=== PATIENT | male | born 1945 | race Caucasian/White ===

== ENCOUNTER 2018-10-10 11:29 | Emergency (ER) | payer MEDICARE, BC ==
[2018-10-10] MEDS ORDERED: Ondansetron ODT 4 MG TAB ONE (11:43)
[2018-10-10 12:35] LABS: #Lymphocytes 0.5 thou/uL (1.20-3.40); #Monocytes 0.3 thou/uL (0.11-0.59); #Neutrophils 10.1 thou/uL (1.40-6.50); %Eosinophils 0.3 % (0.0-10.0); %Lymphocytes 4.4 % (21.0-51.0); %Monocytes 3.1 % (0.0-10.0); %Neutrophils 92.3 % (42.0-75.0); Hemoglobin 16.9 g/dL (14.0-18.0); Mean Corpuscular Hemoglobin 28.5 pg (27.0-31.0); Mean Corpuscular Volume 83.9 fL (78.0-98.0); Mean Platelet Volume 7.2 fL (7.4-10.4); Platelet Count 208 thou/uL (130-400); RBC Distribution Width 13.3 % (11.5-14.5); Red Blood Cell (RBC) Count 5.94 mill/uL (4.70-6.10); White Blood Cell (WBC) Count 10.9 thou/uL (4.8-10.8)
[2018-10-10 13:23] LABS: ALT (SGPT) 37 U/L (8-55); AST (SGOT) 27 U/L (5-34); Albumin 3.9 g/dL (3.4-4.8); Alkaline Phosphatase 35 U/L (40-150); Anion Gap 15 mmol/L (10-20); BUN (Urea Nitrogen) 25 mg/dL (8.4-25.7); Bilirubin, Total 1.2 mg/dL (0.2-1.2); Calc. Creatinine Clearance 0 mL/min (70-130); Calcium 8.9 mg/dL (7.8-10.44); Carbon Dioxide 24 mmol/L (23-31); Chloride 104 mmol/L (98-107); Estimated GFR-MDRD 55; Globulin 3.3 g/dL (2.4-3.5); Glucose 144 mg/dL (83-110); Lipase 28 U/L (8-78); Potassium 4.2 mmol/L (3.5-5.1); Protein, Total 7.2 g/dL (5.8-8.1); Sodium 139 mmol/L (136-145)
== END 2018-10-10 13:35 | disposition home or self-care (01) ==
LOC: ERS 11:29
DX: K52.9 Noninfective gastroenteritis and colitis, unspecified (principal); E86.0 Dehydration; E78.5 Hyperlipidemia, unspecified; Z85.46 Personal history of malignant neoplasm of prostate; Z79.899 Other long term (current) drug therapy; Z79.82 Long term (current) use of aspirin
CPT/HCPCS: 36415; 80053; 83690; 85025; 96360; Q0162

== ENCOUNTER 2019-01-23 07:49 | Outpatient (CLI) | payer MEDICARE, BC ==
--- NOTE | 2019-01-23 09:36 | CT ---
CT Abdomen Pelvis W WO con HISTORY: Microhematuria. Prostate cancer, status post prostatectomy COMPARISON: 12/21/2007 FINDINGS: There are mild dependent changes at the lung bases. Calcified gallstones are present. The l iver, spleen, pancreas and adrenal glands are normal. No free air, free fluid or abdominal lymphadenopathy is seen. No calculi noted in the kidneys, ureters or the urinary bladder. Exophytic left renal cyst is smaller . Small low-density lesions in the kidneys are likely cysts. There is normal contrast excretion into the ureters and urinary bladder. There are postoperative changes of prostatectomy. The 2.6 cm le ft perirectal enhancing mass is stable. There are vascular calcifications without evidence of aneurysmal dilatation of the abdominal aorta. D egenerative changes are seen in the spine. A small left fat-containing inguinal hernia is present. The small bowel loops are not abnormally dilated. IMPRESSION: 1. No CT evidence of urinary tract calculi or obstruction. 2. Probable small renal cysts. 3. Status post prostatectomy with stable 2.6 cm enhancing left perirectal mass. 4. Cholelithiasis.
[2019-01-23] MEDS ORDERED: ISOVUE-370 76%-LOCM 1 ML ONE (10:22)
== END 2019-01-23 07:50 | disposition home or self-care (01) ==
LOC: BICCT 07:49
PROVIDERS: ATTEND Urology
DX: R31.29 Other microscopic hematuria (principal); K80.20 Calculus of gallbladder without cholecystitis without obstruction; Z98.890 Other specified postprocedural states
CPT/HCPCS: 74178; 82565; Q9966

== ENCOUNTER 2019-06-26 19:30 | Outpatient (CLI) | payer MEDICARE, BC | END 2019-06-26 19:31 | disposition home or self-care (01) | LOC: SLEEPLAB 19:30 | PROVIDERS: ATTEND Family Medicine | DX: G47.33 Obstructive sleep apnea (adult) (pediatric) (principal); R53.83 Other fatigue; R06.83 Snoring; I10 Essential (primary) hypertension | CPT/HCPCS: 95811 ==

== ENCOUNTER 2019-09-27 14:01 | Outpatient (CLI) | payer MEDICARE, BC ==
[2019-09-27 16:12] LABS: #Basophils 0.1 thou/uL (0.0-0.2); #Eosinphils 0.2 thou/uL (0.0-0.7); #Lymphocytes 2.2 thou/uL (1.20-3.40); #Monocytes 0.5 thou/uL (0.11-0.59); #Neutrophils 2.7 thou/uL (1.40-6.50); %Eosinophils 3.3 % (0.0-10.0); %Lymphocytes 39.5 % (21.0-51.0); %Monocytes 9.1 % (0.0-10.0); %Neutrophils 47.2 % (42.0-75.0); Hemoglobin 15.7 g/dL (14.0-18.0); Mean Corpuscular HGB CONC 34.1 g/dL (32.0-36.0); Mean Corpuscular Hemoglobin 29.3 pg (27.0-31.0); Mean Corpuscular Volume 85.9 fL (78.0-98.0); Mean Platelet Volume 7.3 fL (7.4-10.4); Platelet Count 222 thou/uL (130-400); RBC Distribution Width 13.3 % (11.5-14.5); Red Blood Cell (RBC) Count 5.38 mill/uL (4.70-6.10); White Blood Cell (WBC) Count 5.6 thou/uL (4.8-10.8)
[2019-09-27 16:13] LABS: Bacteria/HPF None Seen HPF (None Seen); Bilirubin Negative (Negative); Blood, Urine Trace (Negative); Clarity Clear (Clear); Glucose, Urine (Dipstick) Normal (Negative); Leukocyte Negative Leu/uL (Negative); Nitrite Negative (Negative); Protein, Urine (Dipstick) Negative (Neg-Trace); RBC/HPF 0-3 HPF (0-3); Squamous Epithelial None Seen HPF (0-3); Urobilinogen Normal mg/dL (Less than 2); WBC/HPF 0-3 HPF (0-3)
[2019-09-27 16:17] LABS: INR-International Normal Ratio 1.1; Prothrombin Time 13.9 SEC (12.0-14.7)
[2019-09-27 16:30] LABS: Anion Gap 13 mmol/L (10-20); BUN (Urea Nitrogen) 18 mg/dL (8.4-25.7); Calc. Creatinine Clearance 0 mL/min (70-130); Calcium 9.2 mg/dL (7.8-10.44); Carbon Dioxide 27 mmol/L (23-31); Chloride 104 mmol/L (98-107); Estimated GFR-MDRD 72; Glucose 83 mg/dL (83-110); Potassium 3.7 mmol/L (3.5-5.1); Sodium 140 mmol/L (136-145)
== END 2019-09-27 14:02 | disposition home or self-care (01) ==
LOC: LABBT 14:01
PROVIDERS: ATTEND Orthopaedic Surgery
DX: Z01.818 Encounter for other preprocedural examination (principal); M16.12 Unilateral primary osteoarthritis, left hip
CPT/HCPCS: 80048; 81001; 85025; 85610; 87081; 93005; 93010

== ENCOUNTER 2019-10-15 09:02 | Inpatient (IN) | payer MEDICARE, BC ==
[2019-09-27 14:15] VITALS: BMI 30.9
--- NOTE | 2019-10-11 08:26 | HP ---
HISTORY OF PRESENT ILLNESS: The patient is a 74-year-old male with a 6-to 7-month history of progressive left hip and groin pain without injury. He has had progressive problems with despite rest, restriction of activities, and anti-inflammatory medications. The pain is now interfering with day-to-day activities including walking, getting dressed, driving a car, and sleeping. PAST MEDICAL HISTORY: The patient has a history of prostate cancer and underwent previous prostatectomy and has been in remission. He has chronic sinusitis, anxiety, and hypertension. CURRENT MEDICATIONS: Include; 1. Simvastatin. 2. Losartan. 3. Ambien. 4. Sildenafil. 5. Ibuprofen. ALLERGIES: HE HAS NO KNOWN ALLERGIES. FAMILY HISTORY: Otherwise, unremarkable. SOCIAL HISTORY: Otherwise, unremarkable. REVIEW OF SYSTEMS: Otherwise, unremarkable. PHYSICAL EXAMINATION: GENERAL: Reveals a healthy male. HEENT: Unremarkable. NECK: Supple. CHEST: Clear. HEART: Regular rate and rhythm. ABDOMEN: Soft and nontender. RECTAL AND GENITAL: Deferred. EXTREMITIES: Pertinent findings related to the left hip is leg lengths are equal. There is tenderness over the anterior hip. There is a slight left antalgic gait. There is decreased range of motion of the left hip and groin pain with internal rotation. Neurovascular exam is intact. There are palpable distal pulses. DIAGNOSTIC STUDIES: X-rays of the left hip reveal moderately severe DJD with minimal joint space remaining. IMPRESSION: 1. Degenerative arthritis, left hip. 2. History of prostate cancer. 3. History of hypertension. PLAN: Left total hip replacement. The nature of the surgery, length of recovery, and potential complications such as infection, loss of motion, incomplete relief, leg-length discrepancy, possible transfusion, and need for revision have been discussed in detail. Job ID: [id number]
[2019-10-15] MEDS ORDERED: Vancomycin 1.5 GRAM/300 ML BAG 1.5 GM/300 ML BAG ONE (10:10)
[2019-10-15] MEDS ORDERED: Sodium Chloride 0.9% 100 ML ONE (10:10)
[2019-10-15] MEDS ORDERED: Tranexamic Acid 1,000 MG/10 ML VIAL ONE ×2 (10:10→13:54)
[2019-10-15] MEDS ORDERED: Fentanyl 100 MCG/2 ML VIAL ONE ×2 (10:37→11:53)
[2019-10-15] MEDS ORDERED: Midazolam HCl 2 mg/2 ml Vial ONE (10:37)
[2019-10-15] MEDS ORDERED: Dexamethasone 20 MG/5 ML VIAL ONE (10:41)
[2019-10-15] MEDS ORDERED: PHENYLEPHRINE-NS 100 MCG/ML 10 ML SYRINGE ONE (10:41)
[2019-10-15] MEDS ORDERED: PROPOFOL 200 MG/20 ML VIAL ONE (10:41)
[2019-10-15] MEDS ORDERED: Glycopyrrolate 0.2 MG/ML 5 ML SYRINGE ONE (10:41)
[2019-10-15] MEDS ORDERED: ePHEDrine/0.9% NaCl/PF SYRINGE 50 mg/10 ml ONE (10:41)
[2019-10-15] MEDS ORDERED: Calcium Chloride 1 GM/10 ML Abboject SYRINGE ONE (10:41)
[2019-10-15] MEDS ORDERED: Ondansetron PF 4 MG/2 ML Vial ONE (10:41)
[2019-10-15] MEDS ORDERED: Lidocaine 1% PF 5 ML VIAL ONE (10:41)
[2019-10-15] MEDS ORDERED: Lidocaine 1.5%/Epinephrine 1:200,000 5 ML AMPUL IJ ONE (10:41)
[2019-10-15] MEDS ORDERED: Rocuronium Bromide 10 MG/ML (10ML VIAL) ONE (10:41)
[2019-10-15] MEDS ORDERED: Acetaminophen 325 MG TAB PO PRN ×2 (11:22→15:58)
[2019-10-15] MEDS ORDERED: Famotidine/PF 20 mg/2ml Vial ONE (11:27)
[2019-10-15] MEDS ORDERED: traMADol HCl 50 MG TAB PO PRN ×3 (11:30→15:58)
[2019-10-15] MEDS ORDERED: diphenhydrAMINE 50 MG/ML VIAL IVP PRN (11:30)
[2019-10-15] MEDS ORDERED: HYDROcodone/Acetaminophen 5/325 mg Tablet PO PRN (11:30)
[2019-10-15] MEDS ORDERED: Bupivacaine 0.25% 10 ML VIAL EPIDURAL PRN (11:30)
[2019-10-15] MEDS ORDERED: Hydrocerin (Eucerin) Cream 120 gm Jar TOP PRN (11:30)
[2019-10-15] MEDS ORDERED: Ondansetron PF 4 MG/2 ML Vial IVP PRN ×2 (11:30→15:58)
[2019-10-15] MEDS ORDERED: diphenhydrAMINE 25 MG CAP PO PRN ×2 (11:30→15:58)
[2019-10-15] MEDS ORDERED: Naloxone HCl 0.4 mg/ml Vial IV PRN (11:30)
[2019-10-15] MEDS ORDERED: Promethazine HCl 25 MG/ML VIAL IM PRN ×2 (11:30→13:03)
[2019-10-15] MEDS ORDERED: Promethazine HCl 25 MG SUPP PR PRN (11:30)
[2019-10-15] MEDS ORDERED: diphenhydrAMINE 50 MG/ML VIAL IM PRN (11:30)
[2019-10-15] MEDS ORDERED: Naloxone HCl 0.4 mg/ml Vial IVP PRN (11:30)
[2019-10-15] MEDS ORDERED: Phenylephrine HCL 10 MG/ML VIAL ONE (12:58)
[2019-10-15] MEDS ORDERED: Ondansetron HCl/PF 4 MG/2 ML Vial IVP PRN (13:03)
[2019-10-15] MEDS ORDERED: Promethazine HCl 25 MG/ML VIAL SLOW IVP PRN ×2 (13:03→15:58)
[2019-10-15] MEDS ORDERED: PACU-Morphine 4MG/ML VIAL SLOW IVP PRN (13:03)
[2019-10-15] MEDS ORDERED: Albumin 5% 250 ML ONE (13:07)
[2019-10-15] MEDS ORDERED: Tranexamic Acid 1,000 MG in Sodium Chloride 0.9% 100 ML IVPB SCH ×2 (14:00→15:58)
--- NOTE | 2019-10-15 14:28 | OP ---
DATE OF PROCEDURE: 10/15/2019 This is Rayray Sam PA-C dictating a report for Arturo Salter MD. PREPROCEDURE DIAGNOSIS: End-stage bicompartmental osteoarthritis, left hip. POSTOPERATIVE DIAGNOSIS: End-stage bicompartmental osteoarthritis, left hip. PROCEDURE PERFORMED: Press-fit left total hip arthroplasty. SEWING MACHINIST: Rayray Sam PA-C ANESTHESIA: General via endotracheal tube augmented with indwelling epidural. COMPONENTS USED: [employer] Accolade press-fit hip stem size 6 with a Trident PSL press-fit 56 mm cluster acetabular shell, 10-degree polyethylene fixed bearing insert, and 36-mm -5 neck length ceramic femoral head. FINDINGS: End-stage degenerative bicompartmental disease, [id number] arthrosis, particular osteophyte formation, large serous effusion, hypertrophic synovium. ESTIMATED BLOOD LOSS: 350. INPUT: 2200 of crystalloid. OUTPUT: 300 mL of clear yellow urine. DRAINS: None. SPECIMENS: None. COMPLICATIONS: None. COUNTS: Correct. INDICATIONS FOR SURGERY: Rod is a 74-year-old male, who has had progressive left hip, groin, and thigh pain and problem with standing and walking for the last 5 to 7 years. He has failed conservative management and elected to proceed with total hip arthroplasty as definitive treatment of his pain. PROCEDURE IN DETAIL: After informed consent was obtained in the preoperative holding area, the patient was taken to the operative suite where general anesthesia was induced. The patient was then positioned in the lateral decubitus position. The hip was then prepped and draped in usual sterile fashion. The patient received preoperative antibiotics. Prior to incision, time-out was called and all members of the surgical team agreed upon site, surgeon, and patient. After this, a longitudinal incision was made directly over the trochanter, noted by palpation extending 2 fingerbreadths above and below the trochanter. The deeper subcutaneous layer was undermined with Bovie electrocautery. The iliotibial band was encountered and incised sharply and the plane below this was developed bluntly. A Charnley retractor was placed to hold this opened. The lateral aspect of the trochanter and the abductor muscles were encountered and then reflected anteriorly off the trochanter using Bovie electrocautery. Once this was completed, the anterior capsule was then encountered and identified and copious capsulotomy was carried out, exposing the femoral neck and head. Dislocation maneuver was then performed and an in situ provisional neck cut was then made using the oscillating saw. Attention was then turned to acetabular preparation. Sequential reaming was carried out up to the appropriate diameter and a trial was then malleted into place with good firm resistance and no pullout. The permanent acetabular shell was then malleted squarely into place, as was the appropriate liner. Once completed, the wound was copiously irrigated and attention was then turned to femoral preparation. Flexion and external rotation were performed of the exposed thigh and femoral elevators were then placed at the proximal aspect of the wound. Canal finder was used to establish the length of the canal and sequential reaming was carried out, followed by broaching. Once the appropriate stability was established with the trial broaches with flexion, extension and rotational stability, we did trial with neutral and 2 mm offset incremental necks. Once the appropriate size was decided upon, with good stability noted with flexion, extension, internal and external rotation and shuck being negative, we removed the femoral trial broach and malletted into place the permanent prosthesis with good firm fit, which was also stable to rotation. Again, the hip felt very stable to flexion, extension, internal and external rotation. Leg lengths appeared near anatomic clinically and we were quite happy with prosthesis placement. Copious irrigation was then carried out through the entirety of the wound. Primary closure of the abductors was accomplished with interrupted #2 Vicryl [id number] stitches and the IT band was then closed with interrupted #2 Vicryl, oversewn with a #2 running barbed Quill stitch. Subcutaneous fascia was closed with running barbed Quill stitch and a subcuticular Monocryl barbed Quill stitch was used for skin closure and augmented with skin cement. A sterile dressing was applied. The procedure was terminated without any complication. All counts were correct. The patient was awakened in the operative suite and taken to the recovery room in stable condition. Job ID: [id number]
--- NOTE | 2019-10-15 14:40 | RAD ---
Left hip 2 views HISTORY: Hip replacement. FINDINGS: Metal prosthesis is in place. No perihardware lucency. Metallic clips overlie the prostate bed. IMPRESSION: Left hip prosthesis in good radiographic position.
[2019-10-15] MEDS ORDERED: HYDROcodone/Acetaminophen 10/325 mg Tablet PO PRN ×2 (15:58)
[2019-10-15] MEDS ORDERED: Zolpidem Tartrate 5 MG TAB PO PRN (15:58)
[2019-10-15] MEDS ORDERED: Fentanyl 100 MCG/2 ML VIAL SLOW IVP PRN ×2 (15:58)
[2019-10-15] MEDS: Ketorolac Tromethamine 30 MG/ML VIAL IVP SCH ×5 (16:12→23:32)
[2019-10-15] MEDS ORDERED: Multivitamin W/ Minerals 1 TAB PO SCH (17:00)
[2019-10-15] MEDS ORDERED: Aspirin 81 mg Enteric Coated Tablet PO SCH (17:00)
[2019-10-15] MEDS ORDERED: Ferrous Gluconate 324 MG TAB PO SCH (17:00)
[2019-10-15] MEDS ORDERED: Senokot S 8.6-50 MG TAB PO SCH (17:00)
[2019-10-15] MEDS ORDERED: CEFAZOLIN 2 GM in Premix Bag 1 BAG IVPB SCH (18:00)
[2019-10-15] MEDS: Sodium Chloride 0.9% 1,000 ML IV SCH ×2 (18:11→19:38)
--- NOTE | 2019-10-15 19:23 | PDOC.HHP ---
Hospitalist HPI - History of Present Illness Medical Management s/p left hip replacement History of Present Illness: Mr Machuca is a 74M who is post-op from a left hip replacement. Reports he has been dealing with left hip pain for over 6 months. Reports pain was worse with movement, performing ADLs. Currently, is pain free, has a nerve block for pain control. Denies complaints currently. reports he came up from PACU around 4pm today. Dr. Sury Bella is PCP. Hospitalist ROS - Review of Systems Constitutional: denies: fever, chills, sweats, weakness, malaise, other Eyes: denies: pain, vision change, conjunctivae inflammation, eyelid inflammation, redness, other ENT: denies: ear pain, ear discharge, nose pain, nose discharge, nose congestion , mouth pain, mouth swelling, throat pain, throat swelling, other Respiratory: denies: cough, dry, shortness of breath, hemoptysis, SOB with excertion, pleuritic pain, sputum, wheezing, other Cardiovascular: denies: chest pain, palpitations, orthopnea, paroxysmal noc. dyspnea, edema, light headedness, other Gastrointestinal: denies: nausea, vomiting, abdominal pain, diarrhea, constipation, melena, hematochezia, other Genitourinary: denies: dysuria, frequency, incontinence, hematuria, retention, other Musculoskeletal: reports: leg pain (c/o of left hip pain for the past 6+ months) Skin: denies: rash, lesions, luis, bruising, other Neurological: denies: weakness, numbness, incoordination, change in speech, confusion, seizures, other - Medication Medications: Active Medications Generic Name Dose Route Start Last Admin Trade Name Freq PRN Reason Stop Dose Admin Sodium Chloride 1,000 mls @ 100 mls/hr 10/15/19 15:58 10/15/19 18:11 Normal Saline 0.9% IV Not Given .Q10H [facility] Ketorolac Tromethamine 15 mg 10/15/19 12:00 10/15/19 18:32 Toradol IVP 10/17/19 06:01 15 mg Q6HR [facility] Administration Ketorolac Tromethamine 15 mg 10/15/19 18:00 10/15/19 18:29 Toradol IVP 10/17/19 18:01 Not Given Q6HR [facility] Hospitalist History - Past Medical History Source: patient Cardiac: reports: HTN, Hyperlipidemia Psych: reports: Anxiety Renal/: reports: Other (Prostate ca in the past) Other Medical History: Chronic sinusitis, seasonal allergies - Past Surgical History Past Surgical History: reports: TURP Other Surgical History: Rt knee repair, Colonoscopies, Hernia repair, sinus surgery - Family History Other Family History: FMH of cancer,dementia - Social History Alcohol: reports: None Drugs: reports: none Living Situation: With Family Activity level: independent ambulation - Exam General Appearance: NAD, awake alert Eye: PERRL ENT: normocephalic atraumatic, moist mucosa Neck: supple, no JVD, JVD Heart: RRR, normal peripheral pulses Respiratory: CTAB, normal chest expansion Gastrointestinal: soft, non-tender Extremities: no edema Skin: normal turgor Neurological: cranial nerve grossly intact Musculoskeletal: normal tone, normal strength Psychiatric: normal affect, A&O x 3 Hospitalist H&P A/P - Problem (1) Chronic left hip pain Code(s): M25.552 - PAIN IN LEFT HIP; G89.29 - OTHER CHRONIC PAIN Status: Chronic (2) Hypertension Code(s): I10 - ESSENTIAL (PRIMARY) HYPERTENSION Status: Chronic (3) Hyperlipemia Code(s): E78.5 - HYPERLIPIDEMIA, UNSPECIFIED Status: Chronic - Plan Plan: Home meds have been restarted PT as ordered by ortho DVT/GI prevention pain management by anesthesia/ortho We will continue to monitor BP Thank you for the consultation
[2019-10-15] MEDS: CEFAZOLIN 2 GM in Premix Bag 1 BAG IVPB SCH (19:38)
[2019-10-15] MEDS ORDERED: Metoprolol Tartrate 25 MG TAB PO SCH (21:00)
[2019-10-15] MEDS: Simvastatin 20 MG TAB PO SCH (21:22)
[2019-10-15] MEDS ORDERED: Vancomycin 1.5 GRAM/300 ML BAG 1.5 GM in Premix Bag 1 BAG IVPB SCH (22:00)
[2019-10-15] MEDS: Zolpidem Tartrate 5 MG TAB PO PRN (22:04)
[2019-10-16] MEDS: CEFAZOLIN 2 GM in Premix Bag 1 BAG IVPB SCH (03:00)
[2019-10-16 05:15] LABS: Mean Corpuscular HGB CONC 33.3 g/dL (32.0-36.0); Mean Corpuscular Hemoglobin 28.6 pg (27.0-31.0); Mean Corpuscular Volume 85.8 fL (78.0-98.0); Mean Platelet Volume 7.2 fL (7.4-10.4); Platelet Count 177 thou/uL (130-400); RBC Distribution Width 13.1 % (11.5-14.5); Red Blood Cell (RBC) Count 4.53 mill/uL (4.70-6.10); White Blood Cell (WBC) Count 12.6 thou/uL (4.8-10.8)
[2019-10-16] MEDS: Ketorolac Tromethamine 30 MG/ML VIAL IVP SCH ×5 (05:36→23:19)
[2019-10-16] MEDS: Fentanyl 5 mcg/Bup 0.075% Cadd 100 ML EPIDURAL SCH ×2 (06:04→22:49)
[2019-10-16] MEDS: Aspirin 81 mg Enteric Coated Tablet PO SCH ×2 (08:06→20:25)
[2019-10-16] MEDS: Multivitamin W/ Minerals 1 TAB PO SCH (08:07)
[2019-10-16] MEDS: Ferrous Gluconate 324 MG TAB PO SCH ×2 (08:07→20:26)
[2019-10-16] MEDS: Senokot S 8.6-50 MG TAB PO SCH ×2 (08:07→20:26)
[2019-10-16] MEDS: HYDROcodone/Acetaminophen 5/325 mg Tablet PO PRN ×3 (08:08→20:33)
--- NOTE | 2019-10-16 13:53 | PRG ---
DATE OF SERVICE: 10/16/2019 SUBJECTIVE: Rod is a 74-year-old male, postop day 1 from a left total hip arthroplasty. He is doing relatively well and he was able to ambulate greater than 80 feet earlier this morning. OBJECTIVE: VITAL SIGNS: Temperature 98.9, pulse 89, respiratory rate is 20 and unlabored, O2 saturation is 94% on room air, blood pressure is 116/54. GENERAL: He is alert, oriented to person, place, time, and situation, responsive and appropriate with examiner. EXTREMITIES: His incision is clean. No malrotation or shortening of the hip. He is neurovascularly intact in both lower extremities. LABORATORY DATA: Hemoglobin and hematocrit 13.0 and 38.9. IMPRESSION: A 74-year-old male, postop day 1 left total hip arthroplasty, doing well. PLAN: Continue current care. Probable discharge home tomorrow or the next day once [place] is out. The patient is voiding. Job ID: [id number]
[2019-10-16] MEDS: Sodium Chloride 0.9% 1,000 ML IV SCH ×2 (15:31→21:46)
[2019-10-16] MEDS ORDERED: Metoprolol Tartrate 25 MG TAB PO SCH (18:49)
[2019-10-16] MEDS: Simvastatin 20 MG TAB PO SCH (20:25)
[2019-10-16] MEDS: Zolpidem Tartrate 5 MG TAB PO PRN (20:32)
--- NOTE | 2019-10-16 21:53 | PDOC.HOSPP ---
- Subjective Encounter Date: 10/16/19 Encounter Time: 18:15 Subjective: Patient seen and examined for med mngt. No CP/SOB. Pain controlled. No new complaints. No overnight events - Objective Vital Signs & Weight: Vital Signs (12 hours) Temp Pulse Resp BP Pulse Ox 10/16/19 20:00 99.3 F 92 16 127/63 95 10/16/19 15:02 98.3 F 85 16 122/68 96 Weight Admit Weight 235 lb Weight 235 lb I&O: 10/15/19 10/16/19 10/17/19 06:59 06:59 06:59 Intake Total 3113 Output Total 925 Balance 2188 Result Diagrams: 10/16/19 04:53 Additional Labs: Laboratory Tests 01/23/19 09/27/19 08:18 15:09 Creatinine 1.02 Est GFR (Non-Af Amer) 74 Hospitalist ROS - Review of Systems Respiratory: denies: cough, dry, shortness of breath, hemoptysis, SOB with excertion, pleuritic pain, sputum, wheezing, other Cardiovascular: denies: chest pain, palpitations, orthopnea, paroxysmal noc. dyspnea, edema, light headedness, other Gastrointestinal: denies: nausea, vomiting, abdominal pain, diarrhea, constipation, melena, hematochezia, other - Medication Medications: Active Medications Generic Name Dose Route Start Last Admin Trade Name Freq PRN Reason Stop Dose Admin Hydrocodone Bitart/Acetaminophen 1 tab 10/15/19 11:30 10/16/19 20:33 [place] 5/325 PO 1 tab Q4H PRN Administration Mild Pain 1-3 Aspirin 81 mg 10/16/19 09:00 10/16/19 20:25 Ecotrin PO 81 mg BID [facility] Administration Diphenhydramine HCl 25 mg 10/15/19 11:30 10/16/19 20:32 Benadryl PO 25 mg Q3H PRN Administration Itching Ferrous Gluconate 324 mg 10/16/19 09:00 10/16/19 20:26 Fergon PO 324 mg BID HEAVEN Administration Fentanyl Citrate 100 mls @ 6 mls/hr 10/15/19 11:30 10/16/19 06:04 Fentanyl/Bupivacaine EPIDURAL 100 mls INF [facility] Administration As Directed Sodium Chloride 1,000 mls @ 100 mls/hr 10/15/19 15:58 10/16/19 21:46 Normal Saline 0.9% IV Not Given .Q10H [facility] Iron/Minerals/Multivitamins 1 tab 10/16/19 09:00 10/16/19 08:07 Theragran M PO 1 tab DAILY [facility] Administration Ketorolac Tromethamine 15 mg 10/15/19 12:00 10/16/19 17:51 Toradol IVP 10/17/19 06:01 15 mg Q6HR [facility] Administration Metoprolol Tartrate 12.5 mg 10/16/19 18:49 10/16/19 20:25 Lopressor PO 12.5 mg HS [facility] Administration Senna/Docusate Sodium 2 tab 10/16/19 09:00 10/16/19 20:26 Senokot S PO 2 tab BID HE[facility]EN Administration Simvastatin 20 mg 10/15/19 21:00 10/16/19 20:25 Zocor PO 20 mg HS [facility] Administration Sodium Chloride 10 ml 10/15/19 15:58 10/16/19 20:27 Flush - Normal Saline IVF 10 ml PRN PRN Administration Saline Flush Zolpidem Tartrate 5 mg 10/15/19 11:30 10/16/19 20:32 Ambien PO 5 mg HSPRN PRN Administration Insomnia - Exam General Appearance: NAD Neck: no JVD Respiratory: normal chest expansion Extremities: no cyanosis, no edema Neurological: no new deficit Psychiatric: normal affect, A&O x 3 Hosp A/P - Plan DVT proph w/SCDs HTN HLD Obesity BMI 31 CKD 2 Chronic Insomnia PLAN: Redice Metoprolol to 12.5 HS due to BP on lower side Cont Statins Cont supportive care Full code. DPOA - spouse
[2019-10-16] MEDS ORDERED: Fluticasone Propionate Nasal Spray 16 gm Bottle NASAL SCH (23:00)
[2019-10-17] MEDS: Ketorolac Tromethamine 30 MG/ML VIAL IVP SCH (05:37)
[2019-10-17 07:13] VITALS: BP 121/72; TEMP 98.9
[2019-10-17] MEDS: Ferrous Gluconate 324 MG TAB PO SCH (08:54)
[2019-10-17] MEDS: Sodium Chloride 0.9% 1,000 ML IV SCH (08:55)
[2019-10-17] MEDS: Senokot S 8.6-50 MG TAB PO SCH (08:55)
[2019-10-17] MEDS: Multivitamin W/ Minerals 1 TAB PO SCH (08:55)
[2019-10-17] MEDS: Aspirin 81 mg Enteric Coated Tablet PO SCH (08:55)
[2019-10-17] MEDS: HYDROcodone/Acetaminophen 5/325 mg Tablet PO PRN ×2 (08:58→14:50)
== END 2019-10-17 15:33 | disposition home or self-care (01) | DRG 470 ==
LOC: SDC 09:02 → SJJU 15:55 → SDC 16:02
PROVIDERS: ADMIT Orthopaedic Surgery; ATTEND Orthopaedic Surgery
PROC: 0SRB04A Replacement of Left Hip Joint with Ceramic on Polyethylene Synthetic Substitute, Uncemented, Open Approach (ICD-10-PCS; principal; 2019-10-15)
DX: M16.12 Unilateral primary osteoarthritis, left hip (principal); J32.9 Chronic sinusitis, unspecified; F41.9 Anxiety disorder, unspecified; E78.5 Hyperlipidemia, unspecified; G47.30 Sleep apnea, unspecified; E66.9 Obesity, unspecified; I12.9 Hypertensive chronic kidney disease with stage 1 through stage 4 chronic kidney disease, or unspecified chronic kidney disease; N18.2 Chronic kidney disease, stage 2 (mild); F51.04 Psychophysiologic insomnia; F32.9 Major depressive disorder, single episode, unspecified; Z85.46 Personal history of malignant neoplasm of prostate; Z79.899 Other long term (current) drug therapy; Z68.31 Body mass index [BMI] 31.0-31.9, adult
CPT/HCPCS: 36415; 85027; 86850; 86900; 86901; J0690; J1100; J1885; J2001; J2250; J2370; J2405; J2704; J3010; J3490; P9045; Q0163; S0028

== ENCOUNTER 2020-05-07 11:13 | Emergency (ER) | payer MEDICARE, BC ==
--- NOTE | 2020-05-07 12:07 | RAD ---
AP view of the pelvis INDICATION: Left hip pain COMPARISON: None. FINDINGS: Bones: No acute fracture or subluxation is evident. Bone mineralization appears within normal limits. Hips: There is a left total hip prosthesis that projects in expected position. SI joints and symphysis pubis: Normal appearing. Intrapelvic contents: There are numerous surgical clips within the lower pelvis suspicious for prior prostatectomy. IMPRESSION: No acute osseous abnormality.
--- NOTE | 2020-05-07 12:08 | RAD ---
XR Hip Lt 2-3 View INDICATION: Left hip pain COMPARISON: Prior exam dated October 15, 2019 FINDINGS: Bones: No acute osseous abnormality. Bone mineralization appears within normal limits. Hip joint: Left hip prosthesis is unchanged in position from the comparison exam. Mild heterotopic os sification overlies the anterolateral aspect of the left hip. SI joints and symphysis pubis: Radiographically normal. Intrapelvic contents: Surgical clips are seen within the lower central pelvis consistent with a prior prostatectomy. Surrounding soft tissues: Radiographically normal. IMPRESSION: 1. No acute osseous abnormality.
== END 2020-05-07 12:57 | disposition home or self-care (01) ==
LOC: ERS 11:13
DX: M25.552 Pain in left hip (principal); E78.5 Hyperlipidemia, unspecified; E78.00 Pure hypercholesterolemia, unspecified; Z79.899 Other long term (current) drug therapy
CPT/HCPCS: 72170

== ENCOUNTER 2021-04-03 14:47 | Emergency (ER) | payer MEDICARE, BC ==
[2021-04-03 15:52] LABS: #Basophils 0.1 thou/uL (0.0-0.2); #Eosinphils 0.3 thou/uL (0.0-0.7); #Lymphocytes 2.1 thou/uL (1.20-3.40); #Monocytes 0.4 thou/uL (0.11-0.59); #Neutrophils 3.4 thou/uL (1.40-6.50); %Basophils 1.3 % (0.0-1.0); %Eosinophils 4.2 % (0.0-10.0); %Lymphocytes 33.6 % (21.0-51.0); %Neutrophils 53.8 % (42.0-75.0); Hemoglobin 15.9 g/dL (14.0-18.0); Mean Corpuscular HGB CONC 34.3 g/dL (32.0-36.0); Mean Corpuscular Hemoglobin 29.3 pg (27.0-31.0); Mean Corpuscular Volume 85.3 fL (78.0-98.0); Mean Platelet Volume 7.4 fL (7.4-10.4); Platelet Count 216 thou/uL (130-400); RBC Distribution Width 13.2 % (11.5-14.5); Red Blood Cell (RBC) Count 5.43 mill/uL (4.70-6.10); White Blood Cell (WBC) Count 6.2 thou/uL (4.8-10.8)
[2021-04-03] MEDS ORDERED: Famotidine/PF 20 mg/2ml Vial ONE (16:02)
[2021-04-03] MEDS ORDERED: methylPREDNISolone Sod Succ/PF 125 MG/2 ML VIAL ONE (16:02)
[2021-04-03] MEDS ORDERED: diphenhydrAMINE 50 MG/ML VIAL ONE (16:02)
[2021-04-03 16:13] LABS: ALT (SGPT) 29 U/L (8-55); AST (SGOT) 28 U/L (5-34); Alkaline Phosphatase 43 U/L (40-110); Anion Gap 15 mmol/L (10-20); BUN (Urea Nitrogen) 24 mg/dL (8.4-25.7); Bilirubin, Total 0.9 mg/dL (0.2-1.2); Calc. Creatinine Clearance 0 mL/min (70-130); Calcium 9.1 mg/dL (7.8-10.44); Carbon Dioxide 24 mmol/L (23-31); Chloride 105 mmol/L (98-107); Globulin 3.4 g/dL (2.4-3.5); Glucose 121 mg/dL (83-110); Potassium 4.1 mmol/L (3.5-5.1); Protein, Total 7.4 g/dL (5.8-8.1); Sodium 140 mmol/L (136-145)
[2021-04-03 19:13] LABS: Troponin I Less than 0.010 ng/mL (< 0.028)
== END 2021-04-03 19:28 | disposition home or self-care (01) ==
LOC: ERS 14:47
DX: R06.00 Dyspnea, unspecified (principal); E78.5 Hyperlipidemia, unspecified; E78.00 Pure hypercholesterolemia, unspecified
CPT/HCPCS: 36415; 71045; 80053; 84484; 85025; 93005; J1200; J2930; S0028

== ENCOUNTER 2022-06-25 14:36 | Outpatient (CLI) | payer MEDICARE, BC | END 2022-06-25 14:37 | disposition home or self-care (01) | LOC: BICRAD 14:36 | PROVIDERS: ATTEND Family Medicine | DX: M25.562 Pain in left knee (principal); M17.12 Unilateral primary osteoarthritis, left knee ==

== ENCOUNTER 2022-07-20 20:49 | Emergency (ER) | payer MEDICARE, BC | END 2022-07-20 21:41 | disposition left against medical advice (07) | LOC: ERS 20:49 | DX: Z53.21 Procedure and treatment not carried out due to patient leaving prior to being seen by health care provider (principal) ==

== ENCOUNTER 2023-08-29 10:27 | Emergency (ER) | payer MEDICARE, BC ==
[2023-08-29 11:31] LABS: SARS-CoV-2 NAA Rapid Test DETECTED (NotDetected)
[2023-08-29 11:35] LABS: #Eosinphils 0.1 thou/uL (0.0-0.7); #Monocytes 0.6 thou/uL (0.11-0.59); #Neutrophils 5.6 thou/uL (1.40-6.50); %Basophils 0.6 % (0.0-1.0); %Eosinophils 1.5 % (0.0-10.0); %Lymphocytes 11.4 % (21.0-51.0); %Monocytes 8.1 % (0.0-10.0); %Neutrophils 78.3 % (42.0-75.0); Hematocrit 46.1 % (42.0-52.0); Hemoglobin 15.4 g/dL (14.0-18.0); Mean Corpuscular HGB CONC 33.4 g/dL (32.0-36.0); Mean Corpuscular Hemoglobin 28.9 pg (27.0-31.0); Mean Corpuscular Volume 86.5 fl (78.0-98.0); Mean Platelet Volume 9.8 fL (7.4-10.4); Platelet Count 188 10x3/uL (130-400); RBC Distribution Width 13.8 % (11.5-14.5); Red Blood Cell (RBC) Count 5.33 mill/uL (4.70-6.10); White Blood Cell (WBC) Count 7.2 10x3/uL (4.8-10.8)
[2023-08-29 12:02] LABS: ALT (SGPT) 19 U/L (8-55); AST (SGOT) 23 U/L (5-34); Albumin 4.1 g/dL (3.4-4.8); Alkaline Phosphatase 42 U/L (40-110); Anion Gap 12 mmol/L (10-20); BUN (Urea Nitrogen) 16 mg/dL (8.4-25.7); Bilirubin, Total 1.5 mg/dL (0.2-1.2); Calc. Creatinine Clearance 0 mL/min (70-130); Calcium 9.2 mg/dL (7.8-10.44); Carbon Dioxide 28 mmol/L (23-31); Chloride 102 mmol/L (98-107); Estimated GFR 64; Globulin 3.2 g/dL (2.4-3.5); Glucose 96 mg/dL (83-110); Lipase 31 U/L (8-78); Potassium 3.9 mmol/L (3.5-5.1); Protein, Total 7.3 g/dL (5.8-8.1); Sodium 138 mmol/L (136-145)
[2023-08-29 12:06] LABS: Troponin I Less than 0.010 ng/mL (< 0.028)
[2023-08-29] MEDS ORDERED: Acetaminophen 500 MG TAB ONE (12:54)
[2023-08-29] MEDS ORDERED: Doxycycline 100 MG CAP ONE (12:54)
== END 2023-08-29 13:21 | disposition home or self-care (01) ==
LOC: ERS 10:27
DX: U07.1 COVID-19 (principal); J12.82 Pneumonia due to coronavirus disease 2019; I10 Essential (primary) hypertension
CPT/HCPCS: 0240U; 71045; 80053; 83605; 83690; 83880; 84484; 85025; 93005; 99284; 36415

== ENCOUNTER 2023-09-12 10:29 | Outpatient (CLI) | payer MEDICARE, BC | END 2023-09-12 10:30 | disposition home or self-care (01) | LOC: BICRAD 10:29 | PROVIDERS: ATTEND Family Medicine | DX: J18.9 Pneumonia, unspecified organism (principal); J98.4 Other disorders of lung | CPT/HCPCS: 71046 ==

== ENCOUNTER 2024-04-19 10:57 | Outpatient (CLI) | payer MEDICARE, BC ==
[2024-04-19 12:47] LABS: Bilirubin Neg (Negative); Blood, Urine 10 (Negative); Clarity Clear (Clear); Glucose, Urine (Dipstick) Normal (Negative); Ketone, Urine Negative (Negative); Leukocyte Negative (Negative); Nitrite Negative (Negative); Protein, Urine (Dipstick) Negative (Neg-Trace); Specific Gravity, Urine 1.015 (1.005-1.030); Urobilinogen Normal mg/dL (Less than 2)
[2024-04-19 12:48] LABS: Hematocrit 46.3 % (38.8-50.0); Hemoglobin 16.1 g/dL (13.5-17.5); Mean Corpuscular HGB CONC 34.8 g/dL (32.0-36.0); Mean Corpuscular Hemoglobin 30.1 pg (27.0-33.0); Mean Corpuscular Volume 86.7 fL (81.2-95.1); Mean Platelet Volume 9.7 fL (7.4-10.4); Platelet Count 224 10x3/uL (150-450); RBC Distribution Width 13.2 % (11.5-14.5); Red Blood Cell (RBC) Count 5.34 10x6/uL (4.32-5.72); White Blood Cell (WBC) Count 6.8 10x3/uL (3.5-10.5)
[2024-04-19 13:03] LABS: INR-International Normal Ratio 1.1; PTT 26.5 sec (22.0-33.0); Prothrombin Time 11.7 sec (9.5-12.1)
[2024-04-19 13:07] LABS: Anion Gap 15 mmol/L (10-20); BUN (Urea Nitrogen) 23 mg/dL (8.4-25.7); Calc. Creatinine Clearance 0 mL/min (70-130); Calcium 9.6 mg/dL (7.8-10.44); Carbon Dioxide 25 mmol/L (23-31); Chloride 103 mmol/L (98-107); Estimated GFR 66; Glucose 89 mg/dL (83-110); Potassium 4.5 mmol/L (3.5-5.1); Sodium 138 mmol/L (136-145)
[2024-04-19 13:08] LABS: Bacteria/HPF Rare-Few HPF (None Seen); RBC/HPF 0-3 HPF (0-3); Squamous Epithelial 0-3 HPF (0-3); WBC/HPF 0-3 HPF (0-3)
== END 2024-04-19 10:58 | disposition home or self-care (01) ==
LOC: LABBT 10:57
PROVIDERS: ATTEND Urology
DX: Z01.818 Encounter for other preprocedural examination (principal); C61 Malignant neoplasm of prostate; R31.29 Other microscopic hematuria; R35.0 Frequency of micturition
CPT/HCPCS: 80048; 81001; 85027; 85610; 85730; 87086; 93005; 93010

== ENCOUNTER 2024-05-02 05:48 | Day surgery (SDC) | payer MEDICARE, BC ==
[2024-04-19 11:51] VITALS: BMI 28.8
[2024-05-02] MEDS ORDERED: Famotidine/PF 20 mg/2ml Vial ONE (07:09)
[2024-05-02] MEDS ORDERED: Propofol 1,000 MG/100 ML VIAL IV ONE (07:09)
[2024-05-02] MEDS ORDERED: cefTRIAXone (ROCEPHIN) 2 GM VIAL ONE (07:15)
[2024-05-02] MEDS ORDERED: Sodium Chloride 0.9% 100 ML ONE (07:16)
[2024-05-02] MEDS ORDERED: fentaNYL 50 mcg/mL 1 mL Vial ONE (07:28)
[2024-05-02] MEDS ORDERED: Lidocaine 2% PF 5 ML VIAL ONE (07:28)
[2024-05-02] MEDS ORDERED: Ondansetron PF 4 MG/2 ML Vial ONE (07:30)
== END 2024-05-02 08:53 | disposition home or self-care (01) ==
LOC: SDC 05:48
PROVIDERS: ATTEND Urology
PROC: 0VT08ZZ Resection of Prostate, Via Natural or Artificial Opening Endoscopic (ICD-10-PCS; principal; 2024-05-02)
DX: C61 Malignant neoplasm of prostate (principal); C49.5 Malignant neoplasm of connective and soft tissue of pelvis; N40.1 Benign prostatic hyperplasia with lower urinary tract symptoms; R97.20 Elevated prostate specific antigen [PSA]; R31.29 Other microscopic hematuria; R35.0 Frequency of micturition; E78.00 Pure hypercholesterolemia, unspecified; F41.9 Anxiety disorder, unspecified; H91.93 Unspecified hearing loss, bilateral; I10 Essential (primary) hypertension; Z90.79 Acquired absence of other genital organ(s); Z98.890 Other specified postprocedural states; Z96.642 Presence of left artificial hip joint; Z79.899 Other long term (current) drug therapy
CPT/HCPCS: 55700; J0696; J2001; J2405; J2704; J3010; 88341; 88342; G0416; J3490